=== PATIENT | male | born 1990 | race African-American/Black ===

== ENCOUNTER 2021-04-13 23:25 | Emergency (ER) | payer MEDICAID ==
[~2021-04-13] VITALS: Ht 172.7 cm; Wt 144.4 kg
[2021-04-13 23:26] VITALS: BP 138/78
[2021-04-14 00:04] LABS: BASOPHILS % (AUTO) 1 % (0-1); EOSINOPHILS % (AUTO) 3 % (1-7); LYMPHOCYTES % (AUTO) 29 % (22-44); MEAN CORPUSCULAR HEMOGLOBIN 27.8 pg (27.5-34.5); MEAN CORPUSCULAR HGB CONC 33.6 g/dL (33.2-36.2); MEAN PLATELET VOLUME 7.9 fL (7.4-10.4); MONOCYTES % (AUTO) 11 % (2-9); NEUTROPHILS % (AUTO) 55 % (42-75); PLATELET COUNT 299 x10^3/uL (130-400); RED BLOOD COUNT 5.16 x10^6/uL (4.38-5.82); RED CELL DISTRIBUTION WIDTH 13.6 % (9.4-14.8)
[2021-04-14 00:16] LABS: ALANINE AMINOTRANSFERASE 24 U/L (12-78); ALBUMIN 3.3 g/dL (3.4-5.0); ANION GAP 6 mmol/L (5-15); CALCIUM 8.5 mg/dL (8.5-10.1); CHLORIDE 108 mmol/L (98-107); CREATININE 0.83 mg/dL (0.7-1.3)
[2021-04-14 00:20] LABS: ALKALINE PHOSPHATASE 59 U/L (45-117); BILIRUBIN,TOTAL 0.2 mg/dL (0.2-1.0); TOTAL PROTEIN 7.6 g/dL (6.4-8.2); TROPONIN I < 0.015 ng/mL (0.000-0.045)
--- NOTE | 2021-04-14 00:43 | NUR ---
ermd [place] at bedside for eval and to discuss poc
--- NOTE | 2021-04-14 01:35 | NUR ---
pt educated on dc instructions, verbalized understanding. ambulatory to dc desk with steady gait.
== END 2021-04-14 01:57 | disposition home or self-care (01) ==
LOC: ED 23:45
DX: R07.2 Precordial pain (principal); R10.10 Upper abdominal pain, unspecified; R11.0 Nausea; J45.909 Unspecified asthma, uncomplicated
CPT/HCPCS: 36415; 71045; 80053; 83880; 84484; 85025; 93005; 99285